=== PATIENT | female | born 1975 | race Caucasian/White ===

== ENCOUNTER 2019-08-06 07:31 | Outpatient (CLI) | payer OTHER ==
--- NOTE | 2019-08-06 12:50 | CT ---
CT ABDOMEN AND PELVIS WITH AND WITHOUT IV CONTRAST FOLLOWING ENTEROGRAPHY PROTOCOL: INDICATIONS: History of Crohn's disease with prior bowel resection. The technologist relates additional history of stricture at anastomosis site. COMPARISON: CT enterography study of 12/18/2013. FINDINGS: The liver, spleen and pancreas are unremarkable. The adrenal glands and kidneys are unremarkable. Review of the bowel loops following enterography protocol show mild distention of the jejunal loops. The ileal loops show fluid filled distention. There is no evidence of significant mural thickening in the ileal loops. There are findings of prior right ileocecectomy, as noted previously. There is mild luminal narrowing at the anastomotic site, which was noted on the prior exam. The left colon is mildly distended and filled with stool. The transverse and right colon show fluid f illed distention. IMPRESSION: The ileal loops show fluid filled distention with enterography protocol. No evidence of significant m ural thickening or evidence of acute inflammatory bowel change. There is evidence of mild luminal marie rowing at the anastomotic site of the right colon and the right upper quadrant, similar to the prior enterography exam of 2013. POS: TPC
== END 2019-08-06 07:32 | disposition home or self-care (01) ==
LOC: CT 07:31
PROVIDERS: ATTEND Internal Medicine Gastroenterology
DX: K50.90 Crohn's disease, unspecified, without complications (principal); K63.89 Other specified diseases of intestine; K56.699 Other intestinal obstruction unspecified as to partial versus complete obstruction
CPT/HCPCS: 74178

== ENCOUNTER 2019-08-08 13:03 | Outpatient (CLI) | payer OTHER ==
[2019-08-08 14:19] LABS: #Lymphocytes 1.3 thou/uL (1.20-3.40); #Monocytes 0.2 thou/uL (0.11-0.59); #Neutrophils 9.9 thou/uL (1.40-6.50); %Eosinophils 0.2 % (0.0-10.0); %Lymphocytes 11.2 % (21.0-51.0); %Monocytes 1.4 % (0.0-10.0); %Neutrophils 87.2 % (42.0-75.0); Hemoglobin 13.7 g/dL (12.0-16.0); Mean Corpuscular HGB CONC 32.3 g/dL (32.0-36.0); Mean Corpuscular Hemoglobin 29.5 pg (27.0-31.0); Mean Corpuscular Volume 91.4 fL (78.0-98.0); Mean Platelet Volume 8.5 fL (7.4-10.4); Platelet Count 307 thou/uL (130-400); RBC Distribution Width 13.9 % (11.5-14.5); Red Blood Cell (RBC) Count 4.63 mill/uL (4.20-5.40); White Blood Cell (WBC) Count 11.4 thou/uL (4.8-10.8)
[2019-08-08 14:26] LABS: Hemoglobin A1c 5.1 % (4.0-6.0)
[2019-08-08 14:39] LABS: Anion Gap 14 mmol/L (10-20); BUN (Urea Nitrogen) 10 mg/dL (7.0-18.7); Calc. Creatinine Clearance 0 mL/min (70-130); Calcium 9.8 mg/dL (7.8-10.44); Carbon Dioxide 26 mmol/L (22-29); Chloride 104 mmol/L (98-107); Estimated GFR-MDRD 71; Glucose 180 mg/dL (70-105); Potassium 5.2 mmol/L (3.5-5.1); Sodium 139 mmol/L (136-145)
== END 2019-08-08 13:04 | disposition home or self-care (01) ==
LOC: LABBT 13:03
PROVIDERS: ATTEND Surgery
DX: Z01.812 Encounter for preprocedural laboratory examination (principal); K50.90 Crohn's disease, unspecified, without complications
CPT/HCPCS: 80048; 83036; 85025

== ENCOUNTER 2019-08-08 13:15 | Inpatient (IN) | payer OTHER ==
[2019-08-08 13:25] VITALS: BMI 25.2
[2019-08-18] MEDS ORDERED: Midazolam HCl 2 mg/2 ml Vial ONE (10:39)
[2019-08-18] MEDS ORDERED: Dexamethasone 4 mg/ml Vial ONE (10:40)
[2019-08-18] MEDS ORDERED: Fentanyl 100 MCG/2 ML VIAL ONE ×5 (10:40→14:19)
[2019-08-18] MEDS ORDERED: cefOXitin 2 GM VIAL ONE (10:41)
[2019-08-18] MEDS ORDERED: Sodium Chloride 0.9% 100 ML ONE (10:42)
[2019-08-18] MEDS ORDERED: Promethazine HCl 25 MG/ML VIAL ONE (13:25)
[2019-08-18] MEDS ORDERED: Ondansetron HCl/PF 4 MG/2 ML Vial IVP PRN (13:26)
[2019-08-18] MEDS ORDERED: Promethazine HCl 25 MG/ML VIAL SLOW IVP PRN (13:26)
[2019-08-18] MEDS ORDERED: Promethazine HCl 25 MG/ML VIAL IM PRN ×2 (13:26→13:48)
[2019-08-18] MEDS ORDERED: hydrALAZINE 20 MG/ML VIAL SLOW IVP PRN (13:48)
[2019-08-18] MEDS ORDERED: Fentanyl 100 MCG/2 ML VIAL SLOW IVP PRN (13:48)
[2019-08-18] MEDS ORDERED: D5 1/2 NS w/20 mEq KCL 1,000 ML ONE (14:19)
--- NOTE | 2019-08-18 14:33 | OP ---
DATE OF PROCEDURE: 08/18/2019 PREOPERATIVE DIAGNOSIS: Crohn disease with stricture at previous ileocecal anastomosis. POSTOPERATIVE DIAGNOSIS: Crohn disease with stricture at previous ileocecal anastomosis. PROCEDURES PERFORMED: 1. Exploratory laparotomy. 2. Previous ileocolonic anastomotic resection with primary anastomosis, terminal ileum to midtransverse colon. ANESTHESIA: General. ESTIMATED BLOOD LOSS: Minimal. COMPLICATIONS: None. FINDINGS: No significant Crohn disease present. There is obvious stricture at the previous anastomosis. There was no proximal stricture seen. DESCRIPTION OF PROCEDURE: The patient was taken to the operating room and laid supine on the operating room table. After general anesthetic was obtained, a Zelaya was placed. The abdomen was shaved, prepped, and draped in a sterile fashion. Midline incision was made and cautery was used to take down into the abdominal cavity. The small bowel was run from ligament of Treitz to ileocecal valve without significant stenosis or stricture. No significant Crohn disease present. There was evidence of stricture at the previous anastomosis. The scar tissue in the area was dissected using cautery and Impact LigaSure. CATALINO 75 stapler was fired across the small intestine just proximal to the anastomosis. There was no obvious Crohn disease in this area. It was fired just past the anastomosis in the colon as well. The resultant mesentery was taken using impact LigaSure. There was no ongoing bleeding. The small bowel and transverse colon were brought together in an antimesenteric fashion [id number] and enterotomy was made on the end of each. A [id number] anastomosis was performed. The common enterotomy was closed using running 2-0 Vicryl suture. The 2-0 Vicryl serosal layer was performed as well. No evidence of ischemia to the staple line. The mesenteric defect was closed using interrupted silk sutures. A crotch stitch was placed using silk suture. Again, no obvious other Crohn disease in the entire examined abdomen. All instrument counts, needle counts, and lap counts were correct. There was no ongoing bleeding. The abdomen was irrigated. The midline fascia was closed using #1 PDS from the top and the bottom and tied in the middle. The subcutaneous tissues were irrigated and closed using 3-0 Vicryl, 4-0 Monocryl, and Dermabond. The patient was sent to Recovery in stable condition. All instrument counts, needle counts, and lap counts were correct. Job ID: [id number]
[2019-08-18] MEDS ORDERED: Ketorolac Tromethamine 30 MG/ML VIAL ONE (15:39)
[2019-08-18] MEDS ORDERED: Dexamethasone 20 MG/5 ML VIAL ONE (15:39)
[2019-08-18] MEDS ORDERED: Rocuronium Bromide 10 MG/ML (10ML VIAL) ONE (15:39)
[2019-08-18] MEDS ORDERED: Ondansetron PF 4 MG/2 ML Vial ONE (15:39)
[2019-08-18] MEDS ORDERED: ePHEDrine/0.9% NaCl/PF SYRINGE 50 mg/10 ml ONE (15:39)
[2019-08-18] MEDS ORDERED: Bupivacaine HCl 0.5%/Epinephrine 1:200,000/PF 30 ml Vial ONE (15:39)
[2019-08-18] MEDS ORDERED: PROPOFOL 200 MG/20 ML VIAL ONE (15:39)
[2019-08-18] MEDS: Fentanyl 100 MCG/2 ML VIAL SLOW IVP PRN ×3 (15:55→21:49)
[2019-08-18] MEDS: D5 1/2 NS w/20 mEq KCL 1,000 ML IV SCH (15:56)
[2019-08-18] MEDS: Hydrocortisone Sod Succ/PF 100 mg/2 ml Vial IVP SCH ×2 (15:56→20:28)
[2019-08-18] MEDS: Acetaminophen 1,000 MG in Premix Bag 1 BAG IVPB SCH (18:02)
[2019-08-18] MEDS: cefOXitin Sodium 1 GM in Sodium Chloride 0.9% 100 ML IVPB SCH (18:25)
[2019-08-18] MEDS: Famotidine/PF 20 mg/2ml Vial SLOW IVP SCH (20:28)
[2019-08-18] MEDS: Famotidine 20 MG TAB PO SCH (20:29)
[2019-08-18] MEDS ORDERED: Enoxaparin Sodium 40 MG/0.4 ML SYRINGE SC SCH (21:00)
[2019-08-19] MEDS: Acetaminophen 1,000 MG in Premix Bag 1 BAG IVPB SCH ×3 (00:41→11:12)
[2019-08-19] MEDS: cefOXitin Sodium 1 GM in Sodium Chloride 0.9% 100 ML IVPB SCH (03:44)
[2019-08-19] MEDS: D5 1/2 NS w/20 mEq KCL 1,000 ML IV SCH ×2 (03:45→08:22)
[2019-08-19] MEDS: Hydrocortisone Sod Succ/PF 100 mg/2 ml Vial IVP SCH ×3 (05:31→22:56)
[2019-08-19] MEDS: Fentanyl 100 MCG/2 ML VIAL SLOW IVP PRN ×6 (06:05→22:56)
[2019-08-19 06:06] LABS: Band 7 % (5-11); Hemoglobin 11.2 g/dL (12.0-16.0); Lymphocytes 2 % (21-51); MDiff Complete? YES; Mean Corpuscular HGB CONC 32.7 g/dL (32.0-36.0); Mean Corpuscular Hemoglobin 29.7 pg (27.0-31.0); Mean Corpuscular Volume 90.9 fL (78.0-98.0); Mean Platelet Volume 8.4 fL (7.4-10.4); Monocytes 2 % (0-10); Neutrophil 89 % (42-75); Platelet Count 291 thou/uL (130-400); Platelet Morphology Comment Appears Adequate; RBC Distribution Width 13.7 % (11.5-14.5); RBC Morphology Normal; Red Blood Cell (RBC) Count 3.78 mill/uL (4.20-5.40); White Blood Cell (WBC) Count 20.2 thou/uL (4.8-10.8)
[2019-08-19 06:16] LABS: Anion Gap 11 mmol/L (10-20); BUN (Urea Nitrogen) 7 mg/dL (7.0-18.7); Calc. Creatinine Clearance 96 mL/min (70-130); Calcium 9.2 mg/dL (7.8-10.44); Carbon Dioxide 28 mmol/L (22-29); Chloride 106 mmol/L (98-107); Estimated GFR-MDRD 67; Glucose 115 mg/dL (70-105); Potassium 5.4 mmol/L (3.5-5.1); Sodium 140 mmol/L (136-145)
--- NOTE | 2019-08-19 06:56 | PDOC.GSPN ---
Surgery Progress Note: Subj - Subjective Patient reports: no bowel movement Narrative: Mrs. Luong is a 44 y/o female with a history of Chron's disease who is POD 1 from resection of previous ileocolonic anastomosis. She is in moderate pain this morning and had a difficult time sleeping overnight. Fentanyl and Tylenol have been given for pain control, which she currently rates as 7/10. She reports feeling bloated with abdominal discomfort. No bowel movement or passing of flatus since surgery. She is tolerating clears very well and has ambulated in the hallway at least twice since surgery. She has questions regarding if she could take Trazodone to help her sleep and her eyedrops for glaucoma. She normally takes these medications at home. Patient denies chest pain, dyspnea, nausea, vomiting, and pain with urination. Surgery Progress Note: Obj - Vital signs Vital signs: Vital Signs - Most Recent Temp Pulse Resp BP Pulse Ox 97.9 F 73 16 116/62 97 08/19/19 03:45 08/19/19 03:45 08/19/19 03:45 08/19/19 03:45 08/19/19 03:45 - Physical Exam General: moderate pain ENT: normal mucosa Neck: no lymphadectomy, no masses Cardiovascular: regular rate and rhythm, no murmur, other (Pedal pulses 2+ bilaterally and symetric.) Respiratory: clear to auscultation, breath sounds present, other (Had some difficulty taking a full inspiration due to soreness.) Abdomen: soft, decreased bowel sounds, appropriately tender, distended Musculoskeletal: other (No edema in lower extremities bilaterally.) Psychiatric: oriented to time, oriented to person, oriented to place Wound: dressing clean,dry,intact, healing well (Skin bordering the midline incision has mild bruising/pereira discoloratin. No gross erythema or purulent drainage seen.) Surgery Progress Note: Results - Labs Result Diagrams: 08/19/19 05:22 08/19/19 05:22 Lab results: Laboratory Results - last 24 hr 08/19/19 08/19/19 05:22 05:22 WBC 20.2 H RBC 3.78 L Hgb 11.2 L Hct 34.3 L MCV 90.9 MCH 29.7 MCHC 32.7 RDW 13.7 Plt Count 291 MPV 8.4 Neutrophils % (Manual) 89 H Band Neuts % (Manual) 7 Lymphocytes % (Manual) 2 L Monocytes % (Manual) 2 Plt Morphology Comment Appears Adequate RBC Morph Comment Normal Sodium 140 Potassium 5.4 H Chloride 106 Carbon Dioxide 28 Anion Gap 11 BUN 7 Creatinine 0.90 Estimated GFR (MDRD) 67 Glucose 115 H Calcium 9.2 Surgery Progress Note: A/P - Plan Plan: Mrs. Luong is a 44 y/o female with a history of Chron's disease who is POD 1 from resection of previous ileocolonic anastomosis. -Continue clears for now. May advance to full liquids later today. -Monitor pain -Monitor for bowel movement/flatus -Continue to encourage ambulation & use of spirometer Chron's -Currently on Hydrocortisone (takes Prednisone at home)
[2019-08-19] MEDS ORDERED: FLU VACC QS2019-20(6MOS UP)/PF 60 MCG/0.5 ML SYRINGE IM ONE (09:00)
[2019-08-19] MEDS ORDERED: Non-Formulary Item 1 EACH (Travoprost [Travatan Z] 1 DROP) EA EYE SCH (09:00)
[2019-08-19] MEDS ORDERED: HYDROCHLOROTHIAZ PO SCH (09:00)
[2019-08-19] MEDS ORDERED: [UNRECOGNIZED DRUG - OTHER] PO SCH (09:00)
[2019-08-19] MEDS ORDERED: METOPROLOL SU PO SCH (09:00)
[2019-08-19] MEDS: Famotidine/PF 20 mg/2ml Vial SLOW IVP SCH ×2 (09:01→20:54)
[2019-08-19] MEDS: Famotidine 20 MG TAB PO SCH ×2 (09:10→23:13)
[2019-08-19] MEDS: Sodium Chloride 0.9% 1,000 ML IV SCH ×2 (09:10→23:01)
[2019-08-19] MEDS: Hydrochlorothiazide 25 MG TAB PO SCH (09:10)
[2019-08-19 09:21] LABS: Hemoglobin 10.1 g/dL (12.0-16.0); Platelet Count 305 thou/uL (130-400)
--- NOTE | 2019-08-19 10:58 | PRG ---
DATE OF SERVICE: 08/19/2019 SUBJECTIVE: Ms. Luong started having some bloody stools this morning. She has had 4 and they were pretty bloody looking. She has been hemodynamically stable. However, she feels lightheaded. She denies nausea. OBJECTIVE: VITAL SIGNS: Her pulse is 68, blood pressure is 115/64. She is afebrile. ABDOMEN: Soft, minimally distended. Decreased bowel sounds. Midline wound is healing well. LABORATORY DATA: Her hemoglobin was 13 on her preop labs, it was 11 at 5 a.m. this morning and it is 10 now; white cell count was 20 this morning. Her creatinine was normal this morning. ASSESSMENT AND PLAN: Postop day #1, ileocolic anastomosis resection for Crohn's stricture with postop bleeding. Her Lovenox is held. She is bleeding from her staple line likely. I suspect this will just stop on its own. She is hemodynamically stable. Her blood pressure is fine. Her pulse is normal, but she is on metoprolol. We will continue H and H. We have typed and crossed for 2 units just in case. We will discuss with Dr. Goldman, her gastrologist. Job ID: [id number]
[2019-08-19] MEDS ORDERED: Lidocaine 1% PF 5 ML VIAL ONE (12:55)
[2019-08-19] MEDS ORDERED: PROPOFOL 200 MG/20 ML VIAL ONE (12:55)
[2019-08-19] MEDS ORDERED: Fentanyl 100 MCG/2 ML VIAL ONE (14:08)
[2019-08-19] MEDS ORDERED: Ondansetron HCl/PF 4 MG/2 ML Vial IVP PRN (14:48)
[2019-08-19] MEDS ORDERED: Meperidine HCl/PF 25 MG/ML VIAL SLOW IVP PRN (14:48)
[2019-08-19] MEDS ORDERED: Promethazine HCl 25 MG/ML VIAL SLOW IVP PRN (14:48)
[2019-08-19] MEDS ORDERED: Promethazine HCl 25 MG/ML VIAL IM PRN (14:48)
[2019-08-19 15:54] LABS: Hemoglobin 9.4 g/dL (12.0-16.0)
[2019-08-19 16:17] LABS: Anion Gap 9 mmol/L (10-20); BUN (Urea Nitrogen) 8 mg/dL (7.0-18.7); Calc. Creatinine Clearance 108 mL/min (70-130); Calcium 8.2 mg/dL (7.8-10.44); Carbon Dioxide 27 mmol/L (22-29); Chloride 107 mmol/L (98-107); Estimated GFR-MDRD 77; Glucose 114 mg/dL (70-105); Potassium 4.8 mmol/L (3.5-5.1); Sodium 138 mmol/L (136-145)
--- NOTE | 2019-08-19 17:16 | CON ---
DATE OF CONSULTATION: REASON FOR CONSULTATION: GI hemorrhage. HISTORY OF PRESENT ILLNESS: Ms. Cherise Llanos is postoperative day 1 from a redo of an ileocolonic anastomosis, which was strictured down related to Crohn's. She began to have some bleeding and her Lovenox was held, but was continued bleeding. Dr. Daniel asked me to take a look and see if we could control bleeding. She passed 7 bloody stools and then dropped her hemoglobin from 13.7 at 1025 hours, 11.2 early this morning, to 10.1 at 9 this morning. The patient notes she feels like she has had another bowel movement. She denies any abdominal pain. She has been doing well since surgery. MEDICATIONS: 1. P.r.n. fentanyl. 2. Hydrocortisone. 3. Metoprolol. 4. Zofran. 5. Promethazine. 6. Lovenox has been held. PHYSICAL EXAMINATION: VITAL SIGNS: Temperature is 98.3, pulse 52, blood pressure 103/57. ABDOMEN: Soft and nontender. SKIN: She is somewhat pale. LUNGS: Clear. HEART: Regular without clicks or murmurs. LABORATORY DATA: White count was 11.4 on 08/08 and is 20 on 08/19, hemoglobin as noted in HPI. ASSESSMENT: Postoperative day 1 from revision of ileocolonic anastomosis, which was strictured down with the amount of hemorrhage in surgeries overall concern and lack of improvement with stopping Lovenox. We will proceed with a colonoscopy for an attempt to control bleeding. Discussed with the patient the risks, benefits, and possible complications including perforation, bleeding, reaction to medication, aspiration, inability to handle to control bleeding, or disrupting her anastomosis, would require need for repeat surgery. The patient and mother understand, wished to proceed. Job ID: [id number]
--- NOTE | 2019-08-19 17:21 | OP ---
DATE OF PROCEDURE: 08/19/2019 PROCEDURE PERFORMED: Colonoscopy to control bleeding. PREPROCEDURE DIAGNOSIS: Lower gastrointestinal bleeding, suspect to be bleeding from anastomotic source. The patient is postoperative day 1 from a redo of ileocolonic anastomosis several years ago, which is strictured down secondary to Crohn's. POSTPROCEDURE DIAGNOSES: 1. Ileocolic anastomosis with general ulceration as would be expected with the surgery. 2. There is some mild oozing from various sites with no overt visible vessel. There was one visible vessel clot, which was clipped x3 with ablation. RECOMMENDATIONS: 1. Avoid Lovenox. 2. PlexiPulse for DVT prophylaxis. 3. N.p.o. for now. 4. Start clear liquid diet in the morning if no further bleeding. 5. Serial hemoglobin and hematocrits. ANESTHESIA: TIVA. PROCEDURE IN DETAIL: After the patient was informed of the risks, benefits, and possible complications of endoscopy including perforation, bleeding, reaction to medication, and aspiration, informed consent was obtained. The patient was sedated. Once she was sedated, the endoscope was advanced to the anastomosis. The terminal ileum was found and was appeared to be normal. The anastomosis was bloody. This was irrigated and suctioned away. There was quite a bit of erosion, which was expected with anastomosis, but there was some slight oozing from the edges. There were no vessels in this area. One area there was a visible vessel with clot. It was felt this to be partly the main area of bleeding. This was ablated with clips x3. No other bleeding sites were identified with the slight oozing in the other areas, which I think should resolve once her Lovenox wears off. The remainder of the colon appeared normal with no evidence of other disease or lesions. The scope was removed. The patient tolerated the procedure well and brought to recovery room in stable condition. Job ID: [id number]
[2019-08-19] MEDS: Acetaminophen 1,000 MG in Premix Bag 1 BAG IVPB PRN (19:59)
[2019-08-19] MEDS: Latanoprost 0.005% Ophth Soln 2.5 ml Bottle EA EYE SCH (21:44)
[2019-08-20] MEDS: Acetaminophen 1,000 MG in Premix Bag 1 BAG IVPB PRN ×2 (02:36→08:24)
[2019-08-20 05:35] LABS: #Lymphocytes 1.3 thou/uL (1.20-3.40); #Monocytes 0.4 thou/uL (0.11-0.59); #Neutrophils 10.1 thou/uL (1.40-6.50); %Basophils 0.2 % (0.0-1.0); %Eosinophils 0.2 % (0.0-10.0); %Monocytes 3.3 % (0.0-10.0); %Neutrophils 85.4 % (42.0-75.0); Hemoglobin 7.3 g/dL (12.0-16.0); Mean Corpuscular HGB CONC 32.6 g/dL (32.0-36.0); Mean Corpuscular Hemoglobin 29.7 pg (27.0-31.0); Mean Corpuscular Volume 91.2 fL (78.0-98.0); Mean Platelet Volume 8.6 fL (7.4-10.4); Platelet Count 226 thou/uL (130-400); RBC Distribution Width 13.8 % (11.5-14.5); Red Blood Cell (RBC) Count 2.46 mill/uL (4.20-5.40); White Blood Cell (WBC) Count 11.9 thou/uL (4.8-10.8)
[2019-08-20] MEDS: Hydrocortisone Sod Succ/PF 100 mg/2 ml Vial IVP SCH (05:42)
--- NOTE | 2019-08-20 07:23 | PDOC.GSPN ---
Surgery Progress Note: Subj - Subjective Patient reports: pain is less Narrative: Mrs. Luong is a 44 y/o female who is POD 2 from previous ileocolonic anastomosis resection who had post-op bleeding yesterday. She underwent colonoscopy with clip placement to control bleeds. She is feeling better today with continued soreness and mild pain that she rates a 5-6/10 this AM. Pain is being controlled with Tylenol and Fentanyl only PRN. She is ambulating and walking well, but does report some fatigue and dizziness. She also reports mild nausea and no passing of flatus or bowel movement since her scope. She has only consumed ice chips as she is still NPO. Patient denies any new bleeding, chest pain, vomiting, reflux, and changes in urination. Surgery Progress Note: Obj - Vital signs Vital signs: Vital Signs - Most Recent Temp Pulse Resp BP Pulse Ox 97.7 F 70 18 101/52 L 97 08/20/19 03:18 08/20/19 03:18 08/20/19 03:18 08/20/19 03:18 08/20/19 03:18 - Physical Exam General: no distress (Appears tired.) Neck: no lymphadectomy, no masses Cardiovascular: regular rate and rhythm, no murmur Respiratory: clear to auscultation, normal expansion (Mild discomfort with deep breath in RUQ), breath sounds present Abdomen: soft, decreased bowel sounds, appropriately tender, distended ( Distention has improved since yesterday.) Psychiatric: oriented to time, oriented to person, oriented to place Wound: dressing clean,dry,intact, healing well (Mild bruising around midline incision, however no erythema, bleeding, or purulend drainage.) Surgery Progress Note: Results - Labs Result Diagrams: 08/20/19 05:04 08/19/19 15:44 Lab results: Laboratory Results - last 24 hr 08/20/19 05:04 WBC 11.9 H RBC 2.46 L Hgb 7.3 L Hct 22.5 L MCV 91.2 MCH 29.7 MCHC 32.6 RDW 13.8 Plt Count 226 MPV 8.6 Neutrophils % 85.4 H Lymphocytes % 11.0 L Monocytes % 3.3 Eosinophils % 0.2 Basophils % 0.2 Neutrophils # 10.1 H Lymphocytes # 1.3 Monocytes # 0.4 Eosinophils # 0.0 Basophils # 0.0 Surgery Progress Note: A/P - Plan Plan: Mrs. Luong is a 44 y/o female who is POD 2 from previous ileocolonic anastomosis resection who had post-op bleeding yesterday. --She underwent colonoscopy with clip placement to control bleeds. -May change from NPO to clears today -Monitor pain -Monitor flatus, bowel movements, and any signs of re-bleeding -Continue to encourage ambulation & spirometer use -Will continue to monitor BP, H&H, and symptoms to evaluation need for transfusion Chron's -on Hydrocortisone Addendum - Physician - Physician Attestation Date/Time: 08/20/19 1024 I personally performed or re-performed the physical examination and medical decision making. I have verified all student documentation or findings, including history, physical exam and/or medical decision making. C/O dizziness, will transfuse one unit DC metoprolol. She doesn't take it at home usually Full liquids Change back to oral steroids
[2019-08-20] MEDS: Ondansetron PF 4 MG/2 ML Vial IVP PRN ×2 (08:24→14:37)
[2019-08-20] MEDS: Famotidine/PF 20 mg/2ml Vial SLOW IVP SCH ×2 (08:24→20:28)
[2019-08-20] MEDS: Famotidine 20 MG TAB PO SCH ×2 (08:43→23:15)
[2019-08-20] MEDS: Hydrochlorothiazide 25 MG TAB PO SCH (08:43)
[2019-08-20] MEDS ORDERED: predniSONE 20 MG TAB PO SCH (10:30)
[2019-08-20] MEDS: Fentanyl 100 MCG/2 ML VIAL SLOW IVP PRN ×3 (11:48→18:59)
--- NOTE | 2019-08-20 13:50 | PRG ---
DATE OF SERVICE: 08/20/2019 SUBJECTIVE: Overall, the patient feels better. She did have some dizziness with ambulation today. Abdominal pain is tolerable. There is no nausea or vomiting. She did have passage of old blood from her colon. OBJECTIVE: VITAL SIGNS: Temperature is 98.4, blood pressure 103/66, pulse of 71. GENERAL: She is alert, in no distress. HEENT: Shows anicteric sclerae. Oropharynx is clear and moist. CARDIOVASCULAR: Shows normal S1 and S2. Regular rate and rhythm. CHEST: Shows breath sounds. ABDOMEN: Mildly protuberant. No tympany. She does have faint bowel sounds. Mildly tender. EXTREMITIES: Shows no edema. LABORATORY DATA: WBC is 11.9, hemoglobin 7.3, and platelet count of 226. Electrolytes within normal range. Creatinine 0.8. ASSESSMENT: 1. Postop day #2 with resection of ileocolonic anastomotic stricture with subsequent anastomotic bleed followed by colonoscopy with clip placement with good hemostasis. 2. Crohn disease, no signs of active severe disease on laparotomy. 3. Anemia from blood loss. 4. Gastrointestinal bleed from anastomotic bleed, resolved. RECOMMENDATIONS: 1. Overall stable, improving from GI standpoint. 2. Beta-dolly has been discontinued, she has been transitioned to prednisone 40 mg p.o. today. 3. Activity and diet advanced per surgery, anticipate home in 2 to 3 days. 4. Outpatient biologic therapy after discharge. In the meantime, we will slowly taper prednisone down to start at 30 mg daily tomorrow. Job ID: [id number]
[2019-08-20] MEDS: HYDROcodone/Acetaminophen 7.5/325 mg Tablet PO PRN ×2 (14:37→20:29)
[2019-08-20] MEDS: Latanoprost 0.005% Ophth Soln 2.5 ml Bottle EA EYE SCH (20:40)
[2019-08-21] MEDS: HYDROcodone/Acetaminophen 7.5/325 mg Tablet PO PRN ×4 (02:54→21:30)
--- NOTE | 2019-08-21 06:37 | PDOC.GSPN ---
Surgery Progress Note: Subj - Subjective Patient reports: feels better Narrative: Mrs. Luong is a 44 y/o female who is POD 3 from previous ileocolonic anastomosis resection with post-op bleeding controlled via clip placement. She states her pain has improved (rated 2/10), however she continues to experience dizziness with ambulation since her blood transfusion (1 unit pRBCs) . She reports having a few bowel movements that have appeared dark, bloody, and watery with minimal flatus. She has not eaten much due to intermittent nausea, but has been able to tolerate jello, soup, and Ensure with mild abdominal discomfort. Patient denies vomiting, reflux, and changes in urination. Surgery Progress Note: Obj - Vital signs Vital signs: Vital Signs - Most Recent Temp Pulse Resp BP Pulse Ox 97.6 F 71 16 125/73 98 08/21/19 03:11 08/21/19 03:11 08/21/19 03:11 08/21/19 03:11 08/21/19 03:11 - Physical Exam Neck: no lymphadectomy, no masses Cardiovascular: regular rate and rhythm, other (Possible soft murmur.) Respiratory: clear to auscultation, normal expansion (Mild discomfort with full inspiration.), normal respiratory effort, breath sounds present Abdomen: soft, positive bowel sounds (Dull and rumbling in nature), appropriately tender, distended (improving) Integumentary: no rash Psychiatric: oriented to time, oriented to person, oriented to place Wound: dressing clean,dry,intact, healing well (Bruising around midline incision is changing colors. No erythema, bleeding, or purulend draingage from wound.) Surgery Progress Note: Results - Labs Result Diagrams: 08/21/19 09:24 08/19/19 15:44 Surgery Progress Note: A/P - Plan Plan: Mrs. Luong is a 44 y/o female who is POD 3 from previous ileocolonic anastomosis resection with post-op bleeding controlled via clip placement. Transfused 1 unit pRBCs yesterday. --Continues to have dizziness, but pain is improved. -Continue full liquids today -Monitor flatus & bowel movements -Encourage ambulation, but monitor associated dizziness -Metoprolol is discontinued for now -Consider repeat H&H Chron's -switched back to prednisone
[2019-08-21] MEDS: Hydrochlorothiazide 25 MG TAB PO SCH (08:18)
[2019-08-21] MEDS: Famotidine/PF 20 mg/2ml Vial SLOW IVP SCH ×2 (08:18→20:30)
[2019-08-21] MEDS: Famotidine 20 MG TAB PO SCH ×2 (08:26→20:30)
[2019-08-21] MEDS: predniSONE 20 MG TAB PO SCH (08:26)
[2019-08-21] MEDS: Fentanyl 100 MCG/2 ML VIAL SLOW IVP PRN ×2 (09:21→13:29)
[2019-08-21 09:56] LABS: #Basophils 0.1 thou/uL (0.0-0.2); #Eosinphils 0.1 thou/uL (0.0-0.7); #Monocytes 0.9 thou/uL (0.11-0.59); #Neutrophils 10.4 thou/uL (1.40-6.50); %Basophils 0.8 % (0.0-1.0); %Eosinophils 0.6 % (0.0-10.0); %Lymphocytes 20.7 % (21.0-51.0); Hemoglobin 9.9 g/dL (12.0-16.0); Mean Corpuscular HGB CONC 32.2 g/dL (32.0-36.0); Mean Corpuscular Volume 93.2 fL (78.0-98.0); Mean Platelet Volume 8.7 fL (7.4-10.4); Platelet Count 263 thou/uL (130-400); RBC Distribution Width 13.7 % (11.5-14.5); White Blood Cell (WBC) Count 14.5 thou/uL (4.8-10.8)
--- NOTE | 2019-08-21 14:21 | PRG ---
DATE OF SERVICE: 08/21/2019 SUBJECTIVE: Ms. Luong has not passed any bowel movement yet today. Her hemoglobin came up nicely with just 1 unit RBC transfusion yesterday, from 7.3 now at 9.9. She does have ongoing generalized abdominal discomfort and bloating, particularly postprandially. She is thinking about going back to a clear liquid diet. She has been receiving [place]. Prednisone is down to 30 mg daily today. OBJECTIVE: VITAL SIGNS: Temperature 97.2, pulse 61, blood pressure 108/56, and 100% oxygen saturation on room air. GENERAL: No acute distress. HEART: Regular rate and rhythm. LUNGS: Clear to auscultation bilaterally. ABDOMEN: Mild distention, tympanitic. Bowel sounds are hypoactive, but present in all 4 quadrants. Midline incision is healing well. EXTREMITIES: No peripheral edema. LABORATORY STUDIES: Hemoglobin 9.9, WBC 14.5, platelets 263. Sodium 138, potassium 4.8, BUN 8, creatinine 0.80, glucose 114. ASSESSMENT AND PLAN: 1. Crohn disease, with ileocecal disease, now 3 days status post revision of ileocolonic anastomosis. 2. Postoperative bleeding from anastomotic site, 2 days status post hemoclip placement by Dr. Alcantara. 3. Acute blood loss anemia, stable today. No further evidence of bleeding. 4. Postoperative ileus. There has been no further evidence of bleeding. We will leave dietary advancement to the Surgical Service. Hopefully, the patient could be discharged in the next few days. She is planning on close followup in the GI Clinic with Dr. Goldman, likely to start Alejandro. Planning on slow prednisone taper. She started 30 mg daily today. Plan for 30 mg daily for one week, then 20 mg daily for the next week, then 10 mg daily the following week. Please call back anytime if GI can be of further assistance in this hospitalization. Job ID: [id number]
[2019-08-21] MEDS: Latanoprost 0.005% Ophth Soln 2.5 ml Bottle EA EYE SCH (20:31)
[2019-08-22] MEDS: HYDROcodone/Acetaminophen 7.5/325 mg Tablet PO PRN ×3 (05:12→18:21)
[2019-08-22 06:04] LABS: #Eosinphils 0.1 thou/uL (0.0-0.7); #Lymphocytes 2.8 thou/uL (1.20-3.40); #Monocytes 0.6 thou/uL (0.11-0.59); #Neutrophils 6.2 thou/uL (1.40-6.50); %Basophils 0.1 % (0.0-1.0); %Lymphocytes 29.3 % (21.0-51.0); %Monocytes 5.7 % (0.0-10.0); %Neutrophils 63.8 % (42.0-75.0); Hemoglobin 9.3 g/dL (12.0-16.0); Mean Corpuscular HGB CONC 32.6 g/dL (32.0-36.0); Mean Corpuscular Hemoglobin 30.1 pg (27.0-31.0); Mean Corpuscular Volume 92.2 fL (78.0-98.0); Mean Platelet Volume 8.7 fL (7.4-10.4); Platelet Count 228 thou/uL (130-400); RBC Distribution Width 13.6 % (11.5-14.5); Red Blood Cell (RBC) Count 3.08 mill/uL (4.20-5.40); White Blood Cell (WBC) Count 9.7 thou/uL (4.8-10.8)
[2019-08-22 06:21] LABS: Anion Gap 10 mmol/L (10-20); BUN (Urea Nitrogen) 5 mg/dL (7.0-18.7); Calc. Creatinine Clearance 123 mL/min (70-130); Calcium 8.4 mg/dL (7.8-10.44); Carbon Dioxide 32 mmol/L (22-29); Chloride 104 mmol/L (98-107); Estimated GFR-MDRD 90; Glucose 74 mg/dL (70-105); Potassium 3.6 mmol/L (3.5-5.1); Sodium 142 mmol/L (136-145)
--- NOTE | 2019-08-22 06:45 | PDOC.GSPN ---
Surgery Progress Note: Subj - Subjective Patient reports: feels better Narrative: Mrs. Luong is a 44 y/o female who is POD 4 from previous ileocolonic anastomosis resection with post-op bleeding controlled via clip placement. Transfused 1 unit pRBCs POD2. She slept well overnight and is doing better this morning. She states her pain is better controlled after going back to clear liquids on her own due to abdominal discomfort. She tried Full liquids this morning and had more cramping. She walked a few times yesterday without dizziness, but does report fatigue. This improved on subsequent walks throughout the day. She denies having a bowel movement since yesterday, but reports passing flatus regularly. Patient denies dizziness, vomiting, reflux, changes in urination, and any new bleeding. Surgery Progress Note: Obj - Vital signs Vital signs: Vital Signs - Most Recent Temp Pulse Resp BP Pulse Ox 98.2 F 68 16 115/70 98 08/22/19 03:50 08/22/19 03:50 08/22/19 03:50 08/22/19 03:50 08/22/19 03:50 - Physical Exam General: no distress Neck: no lymphadectomy, no masses Cardiovascular: regular rate and rhythm, no murmur Respiratory: clear to auscultation, normal expansion, normal respiratory effort , breath sounds present Abdomen: soft, non tender, nondistended, positive bowel sounds Psychiatric: oriented to time, oriented to person, oriented to place Wound: dressing clean,dry,intact, healing well (Bruising evolving on skin bordering midline incision. No erythema, bleeding, or purulent drainage.) Surgery Progress Note: Results - Labs Result Diagrams: 08/22/19 05:34 08/22/19 05:34 Lab results: Laboratory Results - last 24 hr 08/22/19 08/22/19 05:34 05:34 WBC 9.7 RBC 3.08 L Hgb 9.3 L Hct 28.4 L MCV 92.2 MCH 30.1 MCHC 32.6 RDW 13.6 Plt Count 228 MPV 8.7 Neutrophils % 63.8 Lymphocytes % 29.3 Monocytes % 5.7 Eosinophils % 1.0 Basophils % 0.1 Neutrophils # 6.2 Lymphocytes # 2.8 Monocytes # 0.6 H Eosinophils # 0.1 Basophils # 0.0 Sodium 142 Potassium 3.6 Chloride 104 Carbon Dioxide 32 H Anion Gap 10 BUN 5 L Creatinine 0.70 Estimated GFR (MDRD) 90 Glucose 74 Calcium 8.4 Surgery Progress Note: A/P - Plan Plan: Mrs. Luong is a 44 y/o female who is POD 4 from previous ileocolonic anastomosis resection with post-op bleeding controlled via clip placement. Transfused 1 unit pRBCs POD2. --Feeling better today with decreased dizziness and improved pain and strength. -Place her back on clear liquids today -Monitor flatus & bowel movements -Continue ambulation & hallway walks -Metoprolol is discontinued for now -Plan to discharge tomorrow if continues to feel well & can tolerate full liquids -Follow up in 1-2 weeks in the clinic -Tania/judy sent to [facility] in [facility] -on Prednisone 30mg PO Addendum - Physician - Physician Attestation Date/Time: 08/22/19 8202 I personally performed or re-performed the physical examination and medical decision making. I have verified all student documentation or findings, including history, physical exam and/or medical decision making.
[2019-08-22] MEDS: Hydrochlorothiazide 25 MG TAB PO SCH (09:03)
[2019-08-22] MEDS: Famotidine 20 MG TAB PO SCH ×2 (09:05→21:17)
[2019-08-22] MEDS: predniSONE 20 MG TAB PO SCH (09:05)
[2019-08-22] MEDS: Famotidine/PF 20 mg/2ml Vial SLOW IVP SCH ×2 (09:17→21:17)
[2019-08-22] MEDS: Ondansetron ODT 4 MG TAB SL PRN ×2 (12:29→18:20)
[2019-08-22] MEDS: Latanoprost 0.005% Ophth Soln 2.5 ml Bottle EA EYE SCH (21:20)
[2019-08-23] MEDS: Famotidine 20 MG TAB PO SCH (08:20)
[2019-08-23] MEDS: predniSONE 20 MG TAB PO SCH (08:21)
[2019-08-23] MEDS: Famotidine/PF 20 mg/2ml Vial SLOW IVP SCH (08:21)
[2019-08-23] MEDS: Hydrochlorothiazide 25 MG TAB PO SCH (08:21)
--- NOTE | 2019-08-23 09:33 | PRG ---
DATE OF SERVICE: 08/23/2019 SUBJECTIVE: The patient states she is doing pretty well. She is passing a little bit of flatus. She would like to try full liquids to again today. She did not tolerate it yesterday. She does report she is developing some oral sores because of the prednisone and would like some nystatin. She also says that the Protonix works a lot better than the H2 dolly she is on, so she wishes us to change that. She says her pain is a 5/10. OBJECTIVE: VITAL SIGNS: Temperature 98.3, pulse 71, blood pressure 127/75. GENERAL: She is awake and alert, in no apparent distress. ABDOMEN: Soft and slightly distended. The wound is healing well. There is no evidence of infection. LABORATORY DATA: Yesterday her hemoglobin and hematocrit were 9.3 and 28, which were stable. ASSESSMENT: Stable. PLAN: We will add nystatin swish and swallow and Protonix. We will try full liquids. Job ID: [id number]
[2019-08-23] MEDS ORDERED: Sodium Chloride 0.9% (PF) 10 ML VIAL FS PRN (09:58)
[2019-08-23] MEDS: Pantoprazole 40 MG VIAL IVP SCH (10:09)
[2019-08-23] MEDS: Nystatin 500,000 UNITS/5 ML UDCUP SSW SCH ×3 (12:27→20:56)
[2019-08-23] MEDS: HYDROcodone/Acetaminophen 7.5/325 mg Tablet PO PRN (16:30)
[2019-08-23] MEDS: Latanoprost 0.005% Ophth Soln 2.5 ml Bottle EA EYE SCH (20:58)
[2019-08-23] MEDS ORDERED: Famotidine 20 MG TAB PO SCH (21:00)
[2019-08-24] MEDS: Hydrochlorothiazide 25 MG TAB PO SCH (08:03)
[2019-08-24] MEDS: predniSONE 20 MG TAB PO SCH (08:04)
[2019-08-24] MEDS: Nystatin 500,000 UNITS/5 ML UDCUP SSW SCH ×2 (08:04→13:03)
[2019-08-24] MEDS: Pantoprazole 40 MG VIAL IVP SCH (08:05)
[2019-08-24] MEDS: HYDROcodone/Acetaminophen 7.5/325 mg Tablet PO PRN (08:58)
[2019-08-24] MEDS ORDERED: Pantoprazole 40 MG VIAL IVP SCH (09:00)
[2019-08-24 11:51] VITALS: BP 106/57; TEMP 98.3
--- NOTE | 2019-08-25 12:08 | DIS ---
DATE OF ADMISSION: 08/18/2019 DATE OF DISCHARGE: 08/24/2019 DISCHARGE DIAGNOSES: Small bowel obstruction, Crohn disease. PROCEDURES DURING ADMISSION: Exploratory laparotomy and small bowel resection. Postoperative bleeding with colonoscopy and clipping. HOSPITAL COURSE: The patient was admitted, given IV antibiotics, taken to the operating room, where she underwent an open small-bowel resection. Postoperatively, she developed a hemorrhage and GI did an endoscopy and we were able to put a clip on it at the staple line. She has been doing fine since, but she is tolerating clear liquids well. She is passing gas. She is having bowel movements. She is not doing well with anything thicker than clear liquids, but she feels comfortable and wants to go home and she experiment with her diet when she gets home. She will follow up with Dr. Daniel in 2 weeks. Job ID: [id number]
== END 2019-08-24 14:43 | disposition home or self-care (01) | DRG 330 ==
LOC: SURG A 08-18 10:03
PROVIDERS: ADMIT Surgery; ATTEND Surgery
PROC: 0DB80ZZ Excision of Small Intestine, Open Approach (ICD-10-PCS; principal; 2019-08-18)
PROC: 0W3P8ZZ Control Bleeding in Gastrointestinal Tract, Via Natural or Artificial Opening Endoscopic (ICD-10-PCS; 2019-08-19)
PROC: 30233N1 Transfusion of Nonautologous Red Blood Cells into Peripheral Vein, Percutaneous Approach (ICD-10-PCS; 2019-08-19)
DX: K91.89 Other postprocedural complications and disorders of digestive system (principal); K50.90 Crohn's disease, unspecified, without complications; K91.840 Postprocedural hemorrhage of a digestive system organ or structure following a digestive system procedure; D62 Acute posthemorrhagic anemia; K56.7 Ileus, unspecified; Z79.899 Other long term (current) drug therapy; K62.4 Stenosis of anus and rectum
CPT/HCPCS: 36415; 36416; 36430; 80048; 85025; 86850; 86900; 86901; 88307; J0131; J0670; J0694; J1100; J1650; J1720; J1885; J2001; J2250; J2405; J2550; J2704; J3010; J3490; J7512; P9016; Q0162; S0028

== ENCOUNTER 2021-01-07 08:29 | Day surgery (SDC) | payer OTHER ==
[~2021-01-07 08:29] MED LIST: Ustekinumab 390 MG in Sodium Chloride 0.9% 250 ML 172 ML IV SCH
[2021-01-07] MEDS ORDERED: diphenhydrAMINE 25 MG CAP PO PRN (09:11)
[2021-01-07] MEDS ORDERED: Acetaminophen 500 MG TAB PO PRN (09:11)
[2021-01-07] MEDS ORDERED: Sodium Chloride 0.9% 20 ML ONE (09:35)
[2021-01-07 09:55] VITALS: BP 139/62; TEMP 98.1
== END 2021-01-07 14:47 | disposition home or self-care (01) ==
LOC: ONC/OP 08:29
PROVIDERS: ATTEND Internal Medicine Gastroenterology
DX: K50.90 Crohn's disease, unspecified, without complications (principal); Z88.5 Allergy status to narcotic agent
CPT/HCPCS: 96413; J3358; J7050; Q0163